=== PATIENT | female | born 1990 | race Caucasian/White ===

== ENCOUNTER 2016-12-04 06:41 | Emergency (ER) | payer MEDICAID ==
[2016-12-04 06:54] VITALS: BP 104/59
--- NOTE | 2016-12-04 08:20 | EDM.PDOC ---
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 She thinks she is about 5-6 weeks , Onset: Today Duration: Hour(s):, Other ( vaginal bleding. ) Associated Symptoms: Reports: No Other Symptoms, Other ( Pt is not cramping. 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 Psychiatric History: Reports: Depression, Psych Hospitalization(s), PTSD, Suicide Attempt Dermatologic History: Reports: Cellulitis - Infectious Disease History Infectious Disease History: Reports: Chicken Pox - Past Surgical History HEENT Surgical History: Reports: Tonsillectomy Social & Family History - Family History Family Medical History: Unobtainable - Tobacco Use Smoking Status *Q: Current Every Day Smoker Years of Tobacco use: 14 Packs/Tins Daily: 1 Used Tobacco, but Quit: No Second Hand Smoke Exposure: Yes - Caffeine Use Caffeine Use: Reports: Soda - Alcohol Use Days Per Week of Alcohol Use: 0 - Recreational Drug Use Recreational Drug Use: Yes Drug Use in Last 12 Months: Yes Recreational Drug Type: Reports: Marijuana/Hashish Recreational Drug Use Frequency: Rarely Recreational Drug Last Use: pre ED ROS GENERAL - Review of Systems Review Of Systems: See Below Constitutional: Reports: No Symptoms HEENT: Reports: No Symptoms Respiratory: Reports: No Symptoms Cardiovascular: Reports: No Symptoms Endocrine: Reports: No Symptoms GI/Abdominal: Reports: No Symptoms, Other ( vaginal bleeding of early preg. ) ED EXAM - Physical Exam Exam: See Below Text/Narrative:: pt arrived with vaginal bleeding. She thinks she is 5-6 weeks preg. Exam Limited By: No Limitations General Appearance: Alert Ears: Normal External Exam Nose: Normal Inspection Throat/Mouth: Normal Inspection Head: Atraumatic Neck: Normal Inspection Respiratory/Chest: No Respiratory Distress GI/Abdominal: Other ( no tenderness. ) Course - Vital Signs Last Recorded V/S: Last Vital Signs Temp 36.8 C 12/04/16 06:58 Pulse 80 12/04/16 06:58 Resp 16 12/04/16 06:58 BP 104/59 L 12/04/16 06:58 Pulse Ox 99 12/04/16 06:58 - Orders/Labs/Meds Orders: Active Orders 24 hr Category Date Time Status OB Ltd 1 or More Fetus [US] Stat Exams 12/04/16 07:18 Ordered OB Transvaginal [US] Stat Exams 12/04/16 07:18 Ordered Labs: Laboratory Tests 12/04/16 Range/Units 07:26 HCG, Quant 18729 H (0-6) mIU/mL - Re-Assessments/Exams Free Text/Narrative Re-Assessment/Exam: 12/04/16 08:23 pt has a hcg which has risen to 41,367. Her Us showed a fetus and the heart tones could not be heard but the pumping of the heart could be seen. 12/04/16 08:25 pt should follow the bleeding and if it becomes heavy she should return. Departure - Departure Time of Disposition: 08:16 Disposition: Home, Self-Care 01 Condition: Fair Clinical Impression: Hemorrhage, , early, Elevated serum hCG - Discharge Information Instructions: Vaginal Bleeding During , First Trimester Referrals: Israel Zapien MD [Primary Care Provider] - Forms: ED Department Discharge Care Plan Goals: serum hcg has gone from 19,000 to 41,000. Her us shows a viable fetus. -- follow bleeding and if it becomes heavy rtc. cont to follow with her obgyn. - My Orders Last 24 Hours: My Active Orders 12/04/16 07:18 OB Ltd 1 or More Fetus [US] Stat OB Transvaginal [US] Stat - Assessment/Plan Last 24 Hours: My Active Orders 12/04/16 07:18 OB Ltd 1 or More Fetus [US] Stat OB Transvaginal [US] Stat
--- NOTE | 2016-12-04 11:41 | US ---
OB ultrasound. Findings: Single live intrauterine with crown-rump length 4.6 mm. This corresponds to gest ational age of the fetus at 6 weeks 2 days. Heart rate evident but not able to be detected by Dopple r. Yolk sac is evident. Small subchorionic hematoma measuring 6 mm. Right ovary contains a corpus jerel teum. Left ovary within normal limits. Impression: 1. Single live intrauterine at 6 weeks 2 days gestation. Estimated delivery date 07/28/2017 . heart rate was visualized by technologist but Doppler was unable to get a reading. Recommend short-term ultrasound follow-up to confirm to assess heart tone.
== END 2016-12-04 08:35 | disposition home or self-care (01) ==
LOC: JP.ED 06:41
DX: O20.9 Hemorrhage in early pregnancy, unspecified (principal); Z3A.01 Less than 8 weeks gestation of pregnancy; O99.511 Diseases of the respiratory system complicating pregnancy, first trimester; J45.909 Unspecified asthma, uncomplicated; O99.331 Smoking (tobacco) complicating pregnancy, first trimester; F17.210 Nicotine dependence, cigarettes, uncomplicated; Z88.8 Allergy status to other drugs, medicaments and biological substances; Z98.890 Other specified postprocedural states
CPT/HCPCS: 36415; 76801; 76801-26; 76817; 76817-26; 84702; 99284-25

== ENCOUNTER 2016-12-10 07:11 | Emergency (ER) | payer MEDICAID ==
[2016-12-10 07:22] VITALS: BP 121/76
--- NOTE | 2016-12-10 09:05 | EDM.PDOC ---
ED HPI GENERAL MEDICAL PROBLEM - General Chief Complaint: GLOBE TESTER Problem Stated Complaint: 7WKS & BLEEDING/LIGHT HEADED Time Seen by Provider: 12/10/16 07:15 Source of Information: Reports: Patient History Limitations: Reports: No Limitations - History of Present Illness INITIAL COMMENTS - FREE TEXT/NARRATIVE: History of present illness: [26-year-old female presenting with a gush of blood this morning. She is 7 weeks. She's had some bleeding before and this is her third ultrasound that we did today. She's having no dysuria no headaches no abdominal pain no cramping she passed a clot as well she wasn't sure if this tissue or clots she came in. She has 2 other kids and has had a miscarriage in the past. 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 ] Review of systems: As per history of present illness and below otherwise all systems reviewed and negative. Past medical history: As per history of present illness and as reviewed below otherwise noncontributory. Surgical history: As per history of present illness and as reviewed below otherwise noncontributory. Social history: No reported history of drug or alcohol abuse. Family history: As per history of present illness and as reviewed below otherwise noncontributory. Physical exam: HEENT: Atraumatic, normocephalic, pupils reactive, negative for conjunctival pallor or scleral icterus, mucous membranes moist, throat clear, neck supple, nontender, trachea midline. Lungs: Clear to auscultation, breath sounds equal bilaterally, chest nontender. Heart: S1S2, regular, negative for clicks, rubs, or JVD. Abdomen: Soft, nondistended, nontender. Negative for masses or hepatosplenomegaly. Some mild suprapubic tenderness. Pelvis: Stable nontender. Genitourinary: Deferred. Rectal: Deferred. Extremities: Atraumatic, negative for cords or calf pain. Neurovascular unremarkable. Neuro: Awake, alert, oriented. Cranial nerves II through XII unremarkable. Cerebellum unremarkable. Motor and sensory unremarkable throughout. Exam nonfocal. Diagnostics: [Ultrasound does show viable intrauterine of 7 weeks] Therapeutics: [] Impression: [Threatened AB] Plan: [Usual discharge instructions given regarding this. She's been using her mom Kip as she does have some trouble with nausea and vomiting due to her as well. I've advised her to at least talk to Dr. Zapien's nurse in inform her of her problem with nausea and vomiting and get a prescription from she and for Zofran if that's what they want her to be using at this point. She doesn't appointment for January 13 with him in [place].] Definitive disposition and diagnosis as appropriate pending reevaluation and review of above. - Related Data Allergies Allergy/AdvReac Type Severity Reaction Status Date / Time hydrocodone bitartrate AdvReac Abdominal Verified 12/04/16 07:00 [From Vicodin] Pain Home Meds: Home Meds Ondansetron HCl [Zofran] 4 mg PO ASDIRECTED PRN 12/10/16 [History] Past Medical History Respiratory History: Reports: Asthma Gastrointestinal History: Reports: Hemorrhoids GLOBE TESTER History: Reports: , Spontaneous Other OB/BYN History: miscarriage times one. Psychiatric History: Reports: Depression, Psych Hospitalization(s), PTSD, Suicide Attempt Dermatologic History: Reports: Cellulitis - Infectious Disease History Infectious Disease History: Reports: Chicken Pox - Past Surgical History HEENT Surgical History: Reports: Tonsillectomy Social & Family History - Family History Family Medical History: Unobtainable - Tobacco Use Smoking Status *Q: Current Every Day Smoker Years of Tobacco use: 14 Packs/Tins Daily: 1 Used Tobacco, but Quit: No Second Hand Smoke Exposure: Yes - Caffeine Use Caffeine Use: Reports: Coffee, Soda - Alcohol Use Days Per Week of Alcohol Use: 0 - Recreational Drug Use Recreational Drug Use: No Drug Use in Last 12 Months: Yes Recreational Drug Type: Reports: Marijuana/Hashish Recreational Drug Use Frequency: Rarely Recreational Drug Last Use: pre ED ROS GENERAL - Review of Systems Review Of Systems: ROS reveals no pertinent complaints other than HPI. ED EXAM - Physical Exam Exam: See Below Course - Vital Signs Last Recorded V/S: Last Vital Signs Temp 36.7 C 12/10/16 07:21 Pulse 75 12/10/16 07:21 Resp 16 12/10/16 07:21 BP 121/76 12/10/16 07:21 Pulse Ox 97 12/10/16 07:21 - Orders/Labs/Meds Orders: Active Orders 24 hr Category Date Time Status OB 1st Tri Sgl 1st Gest [US] Stat Exams 12/10/16 07:36 Ordered OB Transvaginal [US] Stat Exams 12/10/16 07:36 Ordered Labs: Laboratory Tests 12/10/16 12/10/16 12/10/16 Range/Units 07:44 07:44 07:44 WBC 6.9 (4.5-11.0) K/uL RBC 3.89 (3.30-5.50) M/uL Hgb 11.9 L (12.0-15.0) g/dL Hct 34.9 L (36.0-48.0) % MCV 90 (80-98) fL MCH 31 (27-31) pg MCHC 34 (32-36) % Plt Count 348 (150-400) K/uL Neut % (Auto) 49 (36-66) % Lymph % (Auto) 36 (24-44) % [place] % (Auto) 14 H (2-6) % Eos % (Auto) 1 L (2-4) % Baso % (Auto) 1 (0-1) % Sodium 139 L (140-148) mmol/L Potassium 3.7 (3.6-5.2) mmol/L Chloride 104 (100-108) mmol/L Carbon Dioxide 25 (21-32) mmol/L Anion Gap 13.7 (5.0-14.0) mmol/L BUN 7 (7-18) mg/dL Creatinine 0.7 (0.6-1.0) mg/dL Est Cr Clr Drug Dosing 105.93 mL/min Estimated GFR (MDRD) > 60 (>60) Glucose 92 (74-106) mg/dL Calcium 8.6 (8.5-10.1) mg/dL Total Bilirubin 0.3 (0.2-1.0) mg/dL AST 7 L (15-37) U/L ALT 15 (12-78) U/L Alkaline Phosphatase 43 L (46-116) U/L Total Protein 7.2 (6.4-8.2) g/dL Albumin 3.5 (3.4-5.0) g/dL Globulin 3.7 H (2.3-3.5) g/dL Albumin/Globulin Ratio 1.0 L (1.2-2.2) HCG, Quant 44715 H (0-6) mIU/mL Urine Color Urine Appearance Urine pH (4.5-8.0) Ur Specific Brownell (1.008-1.030) Urine Protein (NEGATIVE) mg/dL Urine Glucose (UA) (NEGATIVE) mg/dL Urine Ketones (NEGATIVE) mg/dL Urine Occult Blood (NEGATIVE) Urine Nitrite (NEGATIVE) Urine Bilirubin (NEGATIVE) Urine Urobilinogen (NORMAL) mg/dL Ur Leukocyte Esterase (NEGATIVE) Urine RBC (0-5) Urine WBC (0-5) Ur Epithelial Cells Amorphous Sediment Urine Bacteria Urine Mucus 12/10/16 Range/Units 07:58 WBC (4.5-11.0) K/uL RBC (3.30-5.50) M/uL Hgb (12.0-15.0) g/dL Hct (36.0-48.0) % MCV (80-98) fL MCH (27-31) pg MCHC (32-36) % Plt Count (150-400) K/uL Neut % (Auto) (36-66) % Lymph % (Auto) (24-44) % [place] % (Auto) (2-6) % Eos % (Auto) (2-4) % Baso % (Auto) (0-1) % Sodium (140-148) mmol/L Potassium (3.6-5.2) mmol/L Chloride (100-108) mmol/L Carbon Dioxide (21-32) mmol/L Anion Gap (5.0-14.0) mmol/L BUN (7-18) mg/dL Creatinine (0.6-1.0) mg/dL Est Cr Clr Drug Dosing mL/min Estimated GFR (MDRD) (>60) Glucose (74-106) mg/dL Calcium (8.5-10.1) mg/dL Total Bilirubin (0.2-1.0) mg/dL AST (15-37) U/L ALT (12-78) U/L Alkaline Phosphatase (46-116) U/L Total Protein (6.4-8.2) g/dL Albumin (3.4-5.0) g/dL Globulin (2.3-3.5) g/dL Albumin/Globulin Ratio (1.2-2.2) HCG, Quant (0-6) mIU/mL Urine Color Yellow Urine Appearance Cloudy Urine pH 9.0 H (4.5-8.0) Ur Specific [place] 1.010 (1.008-1.030) Urine Protein Negative (NEGATIVE) mg/dL Urine Glucose (UA) Normal (NEGATIVE) mg/dL Urine Ketones Negative (NEGATIVE) mg/dL Urine Occult Blood Moderate (NEGATIVE) Urine Nitrite Negative (NEGATIVE) Urine Bilirubin Negative (NEGATIVE) Urine Urobilinogen 1 (NORMAL) mg/dL Ur Leukocyte Esterase Negative (NEGATIVE) Urine RBC 0-5 (0-5) Urine WBC 0-5 (0-5) Ur Epithelial Cells Rare Amorphous Sediment Not seen Urine Bacteria Rare Urine Mucus Many Departure - Departure Time of Disposition: 09:04 Disposition: Home, Self-Care 01 Condition: Good Clinical Impression: Threatened - Discharge Information Forms: ED Department Discharge Additional Instructions: If you do have bleeding and her soaking a pad an hour then you will need to return to the emergency room for evaluation. You can come any time of course especially if you're having trouble with cramping and bleeding or have passed tissue. If this occurs and you can collect whatever you've past he should bring that with you. Once again I would advise that you talk to Dr. Zapien's nurse regarding a problem with nausea and vomiting. - My Orders Last 24 Hours: My Active Orders 12/10/16 07:36 OB 1st Tri Sgl 1st Gest [US] Stat OB Transvaginal [US] Stat - Assessment/Plan Last 24 Hours: My Active Orders 12/10/16 07:36 OB 1st Tri Sgl 1st Gest [US] Stat OB Transvaginal [US] Stat
== END 2016-12-10 09:10 | disposition home or self-care (01) ==
LOC: JP.ED 07:11
DX: O20.0 Threatened abortion (principal); O99.331 Smoking (tobacco) complicating pregnancy, first trimester; F17.210 Nicotine dependence, cigarettes, uncomplicated; O99.511 Diseases of the respiratory system complicating pregnancy, first trimester; J45.909 Unspecified asthma, uncomplicated; O99.341 Other mental disorders complicating pregnancy, first trimester; F32.9 Major depressive disorder, single episode, unspecified; Z88.5 Allergy status to narcotic agent; Z3A.01 Less than 8 weeks gestation of pregnancy
CPT/HCPCS: 36415; 76801; 76817; 80053; 81001; 84702; 85025; 99284-25

== ENCOUNTER 2017-10-31 22:05 | Emergency (ER) | payer MEDICAID ==
[2017-10-31 22:22] VITALS: BP 136/76
--- NOTE | 2017-10-31 23:43 | EDM.PDOC ---
ED HPI GENERAL MEDICAL PROBLEM - General Chief Complaint: General Stated Complaint: BAD TOOTHACHE Time Seen by Provider: 10/31/17 23:32 Source of Information: Reports: Patient, Old Records, RN Notes Reviewed History Limitations: Reports: No Limitations - History of Present Illness INITIAL COMMENTS - FREE TEXT/NARRATIVE: Drove herself here Chief complaint Toothache History of present illness 27-year-old female, has had dental cavities previously. Current left lower molar was fractured sometime but started developing pain yesterday. She's tried again see a dentist but the early spinal his next week which she has. No fever no nausea or vomiting. Taking Tylenol and ibuprofen without relief of pain. 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 Psychiatric History: Reports: Depression, Psych Hospitalization(s), PTSD, Suicide Attempt Dermatologic History: Reports: Cellulitis - Infectious Disease History Infectious Disease History: Reports: Chicken Pox - Past Surgical History HEENT Surgical History: Reports: Tonsillectomy Other HEENT Surgeries/Procedures: WISDOM TEETH EXTRACTION Social & Family History - Family History Family Medical History: Unobtainable - Tobacco Use Smoking Status *Q: Unknown Ever Smoked - Caffeine Use Caffeine Use: Reports: Coffee, Soda ED ROS ENT - Review of Systems Review Of Systems: See Below Constitutional: Reports: Malaise, Decreased Appetite HEENT: Reports: Dental Pain. Denies: Ear Pain, Eye Pain, Nose Pain, Vision Change Respiratory: Reports: No Symptoms Cardiovascular: Reports: No Symptoms GI/Abdominal: Reports: No Symptoms Skin: Reports: No Symptoms Neurological: Reports: No Symptoms ED EXAM, ENT - Physical Exam Exam: See Below Exam Limited By: No Limitations General Appearance: Alert, Moderate Distress (Quite uncomfortable), Other ( Vital signs normal) Eye Exam: Bilateral Eye: Normal Inspection Ears: Normal External Exam, Normal Canal, Hearing Grossly Normal, Normal TMs Nose: Normal Inspection, Normal Mucousa Mouth/Throat: Dental Pain (Large cavity left lower molar with surrounding swollen inflamed gingiva left lower alveolar ridge) Head: Atraumatic Neck: Normal Inspection, Supple, Limited Range of Motion. No: Lymphadenopathy ( R), Lymphadenopathy (L) Respiratory/Chest: No Respiratory Distress, No Accessory Muscle Use Cardiovascular: Normal Peripheral Pulses, Regular Rate, Rhythm Neurological: Alert, Oriented Skin: Warm, Dry Course - Vital Signs Last Recorded V/S: Last Vital Signs Temp 35.9 C 10/31/17 22:19 Pulse 79 10/31/17 22:19 Resp 14 10/31/17 22:19 BP 136/76 10/31/17 22:19 Pulse Ox 99 10/31/17 22:19 - Re-Assessments/Exams Free Text/Narrative Re-Assessment/Exam: 10/31/17 23:40 27-year-old female with left lower dental pain History of previous tooth fracture, currently she has significant dental caries and gingivitis but no visible abscess Declines intraor analgesia Prescriptions as b below Departure - Departure Time of Disposition: 23:41 Disposition: Home, Self-Care 01 Condition: Good Clinical Impression: Dental caries, Acute gingivitis - Discharge Information Prescriptions: Acetaminophen/oxyCODONE [Percocet 325-5 MG] 1 - 2 each PO Q4H PRN #15 tab PRN Reason: Moderate to severe pain LORazepam 1 mg PO BID PRN #10 tablet PRN Reason: For sleep or anxiety Penicillin V Potassium 500 mg PO TID #30 tablet Instructions: Gingivitis, [id number] Referrals: PCP,None [Primary Care Provider] - Forms: ED Department Discharge Additional Instructions: Addition to the cavity of your molar, there is also considerable swelling and infection of the gums Make a dental appointment as soon as possible
== END 2017-10-31 23:57 | disposition home or self-care (01) ==
LOC: JP.ED 22:05
DX: K02.9 Dental caries, unspecified (principal); K05.00 Acute gingivitis, plaque induced; J45.909 Unspecified asthma, uncomplicated
CPT/HCPCS: 99283

== ENCOUNTER 2019-04-12 21:24 | Emergency (ER) | payer MEDICAID ==
[2019-04-12 21:53] VITALS: BP 116/72; PULSE 91
--- NOTE | 2019-04-12 22:10 | EDM.PDOC ---
ED HPI GENERAL MEDICAL PROBLEM - General Chief Complaint: Eye Problems Stated Complaint: POSSIBLE INFECTION RIGHT EYE SOME PAIN Time Seen by Provider: 04/12/19 21:55 Source of Information: Reports: Patient, Old Records History Limitations: Reports: No Limitations - History of Present Illness INITIAL COMMENTS - FREE TEXT/NARRATIVE: 29 yo female with progressive R eye redness with burning since yesterday. Minimal discharge. No other sx's. No itching. 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 (see below) (none) Right Eye Pain Score (Numeric/FACES): 5 - Related Data Allergies Allergy/AdvReac Type Severity Reaction Status Date / Time acetaminophen [From Vicodin] Allergy Nausea Verified 04/12/19 21:53 hydrocodone [From Vicodin] Allergy Nausea Verified 04/12/19 21:53 Home Meds: Home Meds FLUoxetine HCl [Fluoxetine] 20 mg PO DAILY 04/12/19 [History] Past Medical History HEENT History: Reports: Impaired Vision Respiratory History: Reports: Asthma Gastrointestinal History: Reports: Hemorrhoids 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 Psychiatric History: Reports: Depression, Psych Hospitalization(s), PTSD, Suicide Attempt Endocrine/Metabolic History: Reports: Obesity/BMI 30+ Dermatologic History: Reports: Cellulitis - Infectious Disease History Infectious Disease History: Reports: Chicken Pox - Past Surgical History HEENT Surgical History: Reports: Tonsillectomy Other HEENT Surgeries/Procedures: ALL TEETH EXTRACTION Respiratory Surgical History: Reports: None GI Surgical History: Reports: None Female Surgical History: Reports: Other (See Below) Other Female Surgeries/Procedures: colposcopy on 05/17/18. High grade squamous intraepithelial lesion on pap smear Social & Family History - Family History Family Medical History: Unobtainable - Tobacco Use Smoking Status *Q: Current Every Day Smoker Years of Tobacco use: 17 Packs/Tins Daily: 1 Used Tobacco, but Quit: No Second Hand Smoke Exposure: No - Caffeine Use Caffeine Use: Reports: Coffee, Energy Drinks, Soda - Recreational Drug Use Recreational Drug Use: Yes Recreational Drug Type: Reports: Marijuana/Hashish Recreational Drug Use Frequency: Weekly ED ROS GENERAL - Review of Systems Review Of Systems: ROS reveals no pertinent complaints other than HPI. Constitutional: Reports: No Symptoms HEENT: Reports: Eye Discharge (minimal), Eye Pain. Denies: Ear Discharge, Ear Pain, Nose Pain, Rhinitis, Throat Pain, Vision Change ED EXAM GENERAL W FULL EYE - Physical Exam Exam: See Below Exam Limited By: No Limitations General Appearance: Alert, WD/WN, No Apparent Distress Eye Exam: Right Eye: Conjunctival Injection, Bilateral Eye: EOMI, PERRL Visual Acuity (R) 20/: 30 (with glasses) Eyelids: Bilateral: Normal Appearance Conjunctiva & Sclera: Right: Injected, Left: Normal Appearance Extraocular Movements: Bilateral: Intact Pupils: Normal Accommodation Pupillary Size: Bilateral: 3 mm Ears: Normal External Exam, Normal Canal, Hearing Grossly Normal, Normal TMs Nose: Normal Inspection, Normal Mucosa, No Blood Throat/Mouth: Normal Inspection, Normal Lips, Normal Oropharynx, Normal Voice, No Airway Compromise Head: Atraumatic, Normocephalic Neck: Normal Inspection Respiratory/Chest: No Respiratory Distress, Lungs Clear, Normal Breath Sounds, No Accessory Muscle Use Cardiovascular: Regular Rate, Rhythm Course - Vital Signs Last Recorded V/S: Last Vital Signs Temp 36.8 C 04/12/19 21:52 Pulse 91 04/12/19 21:52 Resp 16 04/12/19 21:52 BP 116/72 04/12/19 21:52 Pulse Ox 98 04/12/19 21:52 Departure - Departure Time of Disposition: 22:09 Disposition: Home, Self-Care 01 Condition: Good Clinical Impression: Viral conjunctivitis of right eye - Discharge Information *PRESCRIPTION DRUG MONITORING PROGRAM REVIEWED*: No *COPY OF PRESCRIPTION DRUG MONITORING REPORT IN PATIENT EDILMA: No Instructions: Viral Conjunctivitis, Adult Referrals: Israel Zapien MD [Primary Care Provider] - Additional Instructions: Frequent hand washing to prevent spread. Acetaminophen or ibuprofen for pain relief. Use antibiotics as directed. Recheck if worse or not improving.
== END 2019-04-12 22:19 | disposition home or self-care (01) ==
LOC: JP.ED 21:24
DX: B30.9 Viral conjunctivitis, unspecified (principal); E66.9 Obesity, unspecified; J45.909 Unspecified asthma, uncomplicated; F17.210 Nicotine dependence, cigarettes, uncomplicated; Z88.6 Allergy status to analgesic agent; Z88.8 Allergy status to other drugs, medicaments and biological substances
CPT/HCPCS: 99283